=== PATIENT | male | born 1930 | race African-American/Black ===

== ENCOUNTER 2016-12-02 15:33 | Inpatient (IN) | payer MEDICARE ==
[2016-12-02] MEDS ORDERED: MILK OF MAGNESIA PO PRN (15:48)
[2016-12-02] MEDS ORDERED: VISTARIL PO PRN ×2 (15:53→16:18)
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
[2016-12-02] MEDS: SENOKOT PO SCH (17:59)
[2016-12-02] MEDS: ULTRAM PO PRN (17:59)
[2016-12-02] MEDS: PEPCID PO SCH (20:47)
[2016-12-02] MEDS: COLCRYS PO SCH (21:22)
[2016-12-02] MEDS: NEURONTIN PO SCH (21:22)
[2016-12-03 04:39] LABS: Eosinophils % (Auto) 1.6 % (0.0-4.3); Hematocrit 32.3 % (35.5-45.6); Hemoglobin 11.1 gm/dl (11.8-15.2); Mean Corpuscular HGB Conc 35 % (32-34); Mean Corpuscular Hemoglobin 31 pg (28-32); Mean Corpuscular Volume 91 fl (84-94); Platelet Count 415 K/mm3 (140-440); Red Blood Count 3.54 M/mm3 (3.65-5.03); Red Cell Distribution Width 15.8 % (13.2-15.2); White Blood Count 7.6 K/mm3 (4.5-11.0)
[2016-12-03 04:52] LABS: INR 1.83 (0.87-1.13)
[2016-12-03 05:02] LABS: Alanine Aminotransferase 36 units/L (7-56); Albumin 3.5 g/dL (3.9-5); Albumin/Globulin Ratio 1.1 %; Alkaline Phosphatase 185 units/L (35-129); Anion Gap 16 mmol/L; BUN/Creatinine Ratio 22.85; Bilirubin,Total 1.1 mg/dL (0.1-1.2); Blood Urea Nitrogen 16 mg/dL (9-20); Calcium 8.5 mg/dL (8.4-10.2); Carbon Dioxide 22 mmol/L (22-30); Chloride 103.8 mmol/L (98-107); Glucose 104 mg/dL (75-100); Potassium 3.9 mmol/L (3.6-5.0); Sodium 138 mmol/L (137-145); Total Protein 6.7 g/dL (6.3-8.2)
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
[2016-12-03] MEDS: PROCARDIA XL PO SCH (08:34)
[2016-12-03] MEDS: TOPROL XL PO SCH (08:35)
[2016-12-03] MEDS: COLCRYS PO SCH ×2 (08:35→21:42)
[2016-12-03] MEDS: PROTONIX PO SCH (08:35)
[2016-12-03] MEDS: NEURONTIN PO SCH ×2 (08:35→21:43)
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
[2016-12-03] MEDS ORDERED: COUMADIN PO SCH (17:00)
[2016-12-03] MEDS: COUMADIN PO SCH (17:52)
[2016-12-03] MEDS: LANOXIN PO SCH (17:52)
[2016-12-03] MEDS: SENOKOT PO SCH (17:55)
[2016-12-03] MEDS: ULTRAM PO PRN (18:01)
[2016-12-03] MEDS: TYLENOL PO PRN (20:30)
[2016-12-03] MEDS: PEPCID PO SCH (20:32)
[2016-12-04 06:33] LABS: INR 1.6 (0.87-1.13)
[2016-12-04] MEDS: PROCARDIA XL PO SCH (08:00)
[2016-12-04] MEDS: ULTRAM PO PRN ×2 (09:43→17:17)
[2016-12-04] MEDS: NEURONTIN PO SCH (09:44)
[2016-12-04] MEDS: COLCRYS PO SCH ×2 (09:44→22:26)
[2016-12-04] MEDS: PROTONIX PO SCH (09:44)
[2016-12-04] MEDS: TOPROL XL PO SCH (09:48)
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
[2016-12-04] MEDS: LANOXIN PO SCH (17:12)
[2016-12-04] MEDS: SENOKOT PO SCH (17:12)
[2016-12-04] MEDS: COUMADIN PO SCH (17:12)
[2016-12-04] MEDS: TYLENOL PO PRN (19:10)
[2016-12-04] MEDS: COLACE PO SCH (22:25)
[2016-12-04] MEDS: PEPCID PO SCH (22:25)
[2016-12-05 05:06] LABS: INR 2.07 (0.87-1.13)
[2016-12-05] MEDS: NEURONTIN PO SCH ×3 (08:05→21:52)
[2016-12-05] MEDS: TYLENOL PO PRN ×2 (08:26→21:57)
[2016-12-05] MEDS: COLCRYS PO SCH ×2 (08:26→21:52)
[2016-12-05] MEDS: PROCARDIA XL PO SCH (08:27)
[2016-12-05] MEDS: COLACE PO SCH ×2 (08:28→21:52)
[2016-12-05] MEDS: PROTONIX PO SCH (08:30)
[2016-12-05] MEDS: TOPROL XL PO SCH (08:30)
[2016-12-05] MEDS: ULTRAM PO PRN (10:48)
[2016-12-05] MEDS ORDERED: ALUM-MAG HYDROX-SIMETH 200-200-20MG/5ML PO PRN (11:22)
[2016-12-05 13:12] LABS: Creatine Kinase MB 1.7 ng/mL (0.0-4.0)
[2016-12-05 13:13] LABS: Creatine Kinase 94 units/L (55-170)
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
[2016-12-05] MEDS: LANOXIN PO SCH (17:38)
[2016-12-05] MEDS: SENOKOT PO SCH (17:38)
[2016-12-05] MEDS: COUMADIN PO SCH (17:38)
[2016-12-05] MEDS: PEPCID PO SCH (21:52)
[2016-12-06 04:44] LABS: INR 2.56 (0.87-1.13)
[2016-12-06] MEDS: COLCRYS PO SCH ×2 (09:23→21:40)
[2016-12-06] MEDS: PROCARDIA XL PO SCH (09:23)
[2016-12-06] MEDS: COLACE PO SCH ×2 (09:23→21:40)
[2016-12-06] MEDS: PROTONIX PO SCH (09:23)
[2016-12-06] MEDS: NEURONTIN PO SCH ×2 (09:23→21:40)
[2016-12-06] MEDS: TYLENOL PO PRN (09:28)
[2016-12-06] MEDS: TOPROL XL PO SCH (09:30)
[2016-12-06] MEDS: ULTRAM PO PRN (11:44)
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
[2016-12-06] MEDS: SENOKOT PO SCH (17:41)
[2016-12-06] MEDS: COUMADIN PO SCH (17:41)
[2016-12-06] MEDS: LANOXIN PO SCH (17:42)
[2016-12-06] MEDS: PEPCID PO SCH (21:40)
[2016-12-07 07:38] LABS: INR 3.09 (0.87-1.13)
[2016-12-07] MEDS: NEURONTIN PO SCH ×2 (08:25→21:17)
[2016-12-07] MEDS: COLACE PO SCH ×2 (08:25→21:18)
[2016-12-07] MEDS: PROTONIX PO SCH (08:25)
[2016-12-07] MEDS: PROCARDIA XL PO SCH (08:25)
[2016-12-07] MEDS: TOPROL XL PO SCH (08:25)
[2016-12-07] MEDS: COLCRYS PO SCH ×2 (08:25→21:18)
[2016-12-07] MEDS: TYLENOL PO PRN (08:33)
[2016-12-07] MEDS: LANOXIN PO SCH (17:59)
[2016-12-07] MEDS: SENOKOT PO SCH (18:00)
[2016-12-07] MEDS: ULTRAM PO PRN (21:16)
[2016-12-07] MEDS: PEPCID PO SCH (21:16)
[2016-12-08 07:40] LABS: INR 2.79 (0.87-1.13)
[2016-12-08] MEDS: COLCRYS PO SCH ×2 (09:32→22:30)
[2016-12-08] MEDS: PROCARDIA XL PO SCH (09:33)
[2016-12-08] MEDS: NEURONTIN PO SCH ×2 (09:33→22:30)
[2016-12-08] MEDS: TOPROL XL PO SCH (09:33)
[2016-12-08] MEDS: PROTONIX PO SCH (09:34)
[2016-12-08] MEDS: COLACE PO SCH ×2 (09:34→22:30)
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
[2016-12-08] MEDS ORDERED: COUMADIN PO SCH (17:00)
[2016-12-08] MEDS: LANOXIN PO SCH (17:10)
[2016-12-08] MEDS: SENOKOT PO SCH (17:11)
[2016-12-08] MEDS: PEPCID PO SCH (22:00)
[2016-12-09 05:16] LABS: INR 2.62 (0.87-1.13)
[2016-12-09] MEDS: TOPROL XL PO SCH (09:49)
[2016-12-09] MEDS: PROCARDIA XL PO SCH (09:50)
[2016-12-09] MEDS: ULTRAM PO PRN (09:50)
[2016-12-09] MEDS: NEURONTIN PO SCH (09:50)
[2016-12-09] MEDS: PROTONIX PO SCH (09:50)
[2016-12-09 09:51] VITALS: BP 135/72
[2016-12-09] MEDS: COLACE PO SCH (09:51)
[2016-12-09] MEDS: COLCRYS PO SCH (09:51)
--- NOTE | 2016-12-09 12:50 | Discharge Summary ---
Providers - Providers Date of Admission: 12/02/16 15:33 Date of discharge: 12/09/16 Attending physician: BILLY YU 12/02/16 15:48 Consult to Wound/ET Nurse [CONS] Routine Reason For Exam: wound eval, left knee Occupational Therapy Evaluate and Treat [CONS] Routine Comment: Reason For Exam: left MARCIE, left knee effusion Physical Therapy Evaluation and Treat [CONS] Routine Comment: Reason For Exam: left MARCIE, left knee effusion Primary care physician: Dr. Darryl Simental Hospitalization Reason for admission: left femoral neck fracture Condition: Stable Hospital course: 86 y.o. male [place] in [place]. Upon arrival to acute care facility, pt complained of left lower extremity pain; found to have a left femoral neck fracture with varus deformity; taken for left MARCIE on 11/18. Post-op course significant for acute blood loss anemia, s /p transfusion; acute gouty flare, requiring decadron and initiation of colchicine; resumption of coumadin. Pt continued with functional deficits following surgery; admitted for aggressive therapies and ongoing medical management. IRU course notable for ongoing coumadin management; pt initially subtherapeutic, however, now is within therapeutic range. Left knee xray was obtained on admission- severe anterior soft tissue swelling vs hematoma noted; no fracture. Pain is much better controlled at both hip and knee since admission. Functionally, pt has shown good progress. Pt initially required s/ u to totalA for ADLs, Alex/CGA for bed mobility, transfers, and gait. Pt has now progressed to [place] to supervision for ADLs; supervision for transfers and gait. Family training has been completed with sons. Pt will need to F/U with PCP who has been managing his coumadin on 12/11 for INR check. Pt is stable for d /c home on today. >30 mins spent on d/c process, pt/family education, med reconciliation Disposition: DISCHARGED TO HOME OR SELFCARE - Discharge Diagnoses (1) Fracture of femoral neck, left, closed Status: Acute Qualifiers: Encounter type: initial encounter Qualified Code(s): S72.002A - Fracture of unspecified part of neck of left femur, initial encounter for closed fracture (2) Status post total hip replacement, left Status: Acute (3) HTN (hypertension) Status: Acute Qualifiers: Hypertension type: essential hypertension Qualified Code(s): I10 - Essential (primary) hypertension (4) Chronic a-fib Status: Acute (5) Traumatic hematoma of left knee Status: Acute Qualifiers: Encounter type: initial encounter Qualified Code(s): S80.02XA - Contusion of left knee, initial encounter (6) Unsteady gait Status: Acute Core Measure Documentation - Palliative Care Palliative Care/ Comfort Measures: Not Applicable - Core Measures Any of the following diagnoses?: none Exam - Constitutional Vitals: Temp Pulse Resp BP Pulse Ox 98 F 68 18 135/72 97 12/09/16 08:00 12/09/16 09:49 12/09/16 08:00 12/09/16 09:49 12/09/16 08:00 General appearance: Present: no acute distress - EENT Eyes: Present: EOM intact ENT: hearing intact - Neck Neck: Present: supple, normal ROM - Respiratory Respiratory effort: normal - Extremities Extremity abnormal: edema (LLE, stable) - Abdominal General gastrointestinal: Present: soft, non-tender, non-distended - Musculoskeletal Musculoskeletal: left sided weakness (LLE, improved since admission as pain is better controlled) - Psychiatric Psychiatric: appropriate mood/affect, cooperative - Neurologic Neurologic: CNII-XII intact Plan Activity: no driving until cleared by PCP, fall precautions, other (hip precautions) Weight Bearing Status: Weight Bear as Tolerated Diet: low cholesterol, low salt Special Instructions: record daily BP diary, no heavy lifting, physical therapy (Referred to [facility] in [place]; pt refused) Durable Medical Equipment Needed Upon Discharge: Cane (large based quad cane), Bedside Commode, other ([facility]) Additional Instructions: PCP, Dr. Darryl Simental; Son notified to present on , 12/11, for INR check Follow up with: DARIANA VEGA MD [Staff Physician] - 7 Days Forms: Warfarin Discharge Instruction Prescriptions: Famotidine [Pepcid] 20 mg PO QHS #30 tablet Colchicine [Colcrys] 0.6 mg PO BID #60 tablet Gabapentin [Neurontin] 300 mg PO BID #60 capsule NIFEdipine XL [Procardia Xl] 30 mg PO QDAY #30 tablet Pantoprazole [Protonix TAB] 40 mg PO QDAY #30 tablet
== END 2016-12-09 15:15 | disposition home or self-care (01) | DRG 536 ==
LOC: EDBD 15:33 → 3B 15:33
PROVIDERS: ADMIT Family Medicine; ATTEND Family Medicine
DX: S72.002A Fracture of unspecified part of neck of left femur, initial encounter for closed fracture (principal); D62 Acute posthemorrhagic anemia; Z96.642 Presence of left artificial hip joint; I10 Essential (primary) hypertension; I48.2 Chronic atrial fibrillation; M25.462 Effusion, left knee; M10.9 Gout, unspecified; K21.9 Gastro-esophageal reflux disease without esophagitis; I71.2 Thoracic aortic aneurysm, without rupture; S80.02XA Contusion of left knee, initial encounter; R26.81 Unsteadiness on feet; Z79.01 Long term (current) use of anticoagulants; V89.2XXA Person injured in unspecified motor-vehicle accident, traffic, initial encounter; Y93.9 Activity, unspecified; Y92.411 Interstate highway as the place of occurrence of the external cause; Z95.2 Presence of prosthetic heart valve; Z82.49 Family history of ischemic heart disease and other diseases of the circulatory system
CPT/HCPCS: 36415; 80053; 82550; 82553; 84484; 85025; 85610; 93005; 93010; Q0177

== ENCOUNTER 2017-02-03 14:08 | Emergency (ER) | payer MEDICARE ==
[2017-02-03 15:12] LABS: Basophils % (Auto) 0.9 % (0.0-1.8); Hematocrit 29.4 % (35.5-45.6); Hemoglobin 10.1 gm/dl (11.8-15.2); Mean Corpuscular HGB Conc 34 % (32-34); Mean Corpuscular Hemoglobin 30 pg (28-32); Mean Corpuscular Volume 86 fl (84-94); Platelet Count 210 K/mm3 (140-440); Red Blood Count 3.41 M/mm3 (3.65-5.03); Red Cell Distribution Width 16.1 % (13.2-15.2); White Blood Count 4.3 K/mm3 (4.5-11.0)
--- NOTE | 2017-02-03 15:31 | XRay Report ---
LEFT KNEE RADIOGRAPHS INDICATION: Fall. COMPARISON: 12/02/2016. FINDINGS: AP, oblique and crosstable lateral attempted left knee radiographs again demonstrate intact articulation. Diffuse soft tissue swelling anteriorly again noted, though improved by approximately 40% since the prior exam. Small suprapatellar effusion also not excluded. CONCLUSION: Improved, though persistent left knee diffuse soft tissue swelling or hematoma anteriorly, as described. No acute bony abnormality. Please correlate. Thank you for the opportunity to participate in this patient's care.
[2017-02-03 15:33] LABS: INR 9.9 (0.87-1.13)
[2017-02-03 15:34] LABS: Partial Thromboplastin Time 181.2 Sec. (24.2-36.6)
[2017-02-03 15:47] LABS: Anion Gap 20 mmol/L; Blood Urea Nitrogen 9 mg/dL (9-20); Calcium 8.4 mg/dL (8.4-10.2); Carbon Dioxide 22 mmol/L (22-30); Chloride 100.7 mmol/L (98-107); Glucose 125 mg/dL (75-100); Sodium 140 mmol/L (137-145)
[2017-02-03 15:54] LABS: Potassium 2.9 mmol/L (3.6-5.0)
[2017-02-03] MEDS ORDERED: K-DUR PO ONE (16:18)
[2017-02-03] MEDS ORDERED: ULTRAM PO ONE (16:28)
[2017-02-03] MEDS ORDERED: MORPHINE IV ONE (16:53)
[2017-02-03] MEDS ORDERED: ZOFRAN IV ONE (16:53)
--- NOTE | 2017-02-03 16:54 | Cat Scan Report ---
CT HEAD WITHOUT CONTRAST INDICATION: Fall, elevated INR. COMPARISON: None similar. FINDINGS: Noncontrast head CT demonstrates a small to moderate left frontoparietal subdural fluid collection with maximum thickness of 15 mm, axial image 39, series 2 with mild underlying sulcal effacement. Mild intrinsic hyperdensity represents acute/recent hemorrhage. No significant midline shift. Age-appropriate ventricular and sulcal enlargement. Prominent extra-axial CSF spaces measure up to 4 mm thickness in the right frontal region while approximately 10 mm in both middle fossae about the temporal lobe tips. Mild periventricular hypodensities. No definite acute infarct. Normal posterior fossa with preserved basilar cisterns. Bilateral cataract surgery. Leftward nasal septal deviation anteriorly. Clear imaged paranasal sinuses and mastoid air cells. Atherosclerotic internal carotid and vertebral artery calcifications. Intact calvarium and scalp. Edentulous jaw. Mild cervical spondylosis. CONCLUSION: 1. 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 Underlying sulcal effacement noted, though without significant midline shift. 2. Other findings, including age-appropriate atrophy, as above. Thank you for the opportunity to participate in this patient's care.
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
[2017-02-03] MEDS ORDERED: VITAMIN K (ADULT ONLY) SUB-Q ONE (17:09)
[2017-02-03] MEDS ORDERED: NACL 0.9% 500 ML 500 ML IV ONE (17:09)
[2017-02-03 17:41] LABS: INR 9.91 (0.87-1.13)
[2017-02-03 17:53] VITALS: BP 128/72
--- NOTE | 2017-02-04 08:44 | XRay Report ---
Left hip: There is a total left hip replacement which appears well-positioned. No evidence of loosening nor fracture. 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 AP view of the remaining pelvis is also unremarkable. There is however significant tilting of the L3 and L4 vertebral bodies to the right with probable narrowing of the L4-5 interspace. Impression: Hip replacement. Degenerative and scoliotic lower lumbar spine changes.
== END 2017-02-03 18:41 | disposition other institution (70) ==
LOC: ED 14:08
DX: S06.5X0A Traumatic subdural hemorrhage without loss of consciousness, initial encounter (principal); S80.02XA Contusion of left knee, initial encounter; E87.6 Hypokalemia; R79.1 Abnormal coagulation profile; I10 Essential (primary) hypertension; F17.200 Nicotine dependence, unspecified, uncomplicated; Z96.642 Presence of left artificial hip joint; W18.39XA Other fall on same level, initial encounter; Y93.89 Activity, other specified; Y99.8 Other external cause status; Y92.89 Other specified places as the place of occurrence of the external cause
CPT/HCPCS: 36415; 70450; 73502; 73562; 80048; 83735; 84132; 84484; 85025; 85610; 85730; 86850; 86900; 86901; 93005; 93010; 96360; 96372; 99285; J3430; J7040; P9017